=== PATIENT | female | born 1935 | race Caucasian/White ===

== ENCOUNTER 2017-04-05 21:20 | Emergency (ER) | payer MEDICARE ==
[~2017-04-05] VITALS: Ht 165.1 cm; Wt 58.1 kg
[2017-04-05] MEDS ORDERED: DIPH,PERTUSS(ACELL),TET VAC/PF 0.5 ML IM-VACC ONE ×2 (22:30→22:41)
[2017-04-05] MEDS ORDERED: BACITRACIN ZINC OINT 500U/GM, 0.9 GM ONE (22:56)
[2017-04-05] MEDS ORDERED: LIDOCAINE 1%, 20ML ONE (22:57)
[2017-04-05] MEDS ORDERED: LIDOCAINE 1%, 20ML SQ ONE (23:00)
[2017-04-05 23:42] VITALS: BP 145/62
== END 2017-04-05 23:46 | disposition home or self-care (01) ==
LOC: ED 23:37
DX: S01.21XA Laceration without foreign body of nose, initial encounter (principal); S01.01XA Laceration without foreign body of scalp, initial encounter; F10.120 Alcohol abuse with intoxication, uncomplicated; J44.9 Chronic obstructive pulmonary disease, unspecified; E03.9 Hypothyroidism, unspecified; W01.0XXA Fall on same level from slipping, tripping and stumbling without subsequent striking against object, initial encounter; Y93.89 Activity, other specified; Y92.098 Other place in other non-institutional residence as the place of occurrence of the external cause; Y99.8 Other external cause status
CPT/HCPCS: 12011; 70450; 70486; 72125; 90715; 99284; J3490

== ENCOUNTER 2019-06-01 19:32 | Emergency (ER) | payer MEDICARE ==
[~2019-06-01] VITALS: Ht 160 cm; Wt 52.0 kg
[2019-06-01] MEDS ORDERED: ALBUTEROL/IPRATROPIUM 2.5MG/0.5MG, 3 ML ONE (19:36)
--- NOTE | 2019-06-01 19:38 | NUR ---
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
--- NOTE | 2019-06-01 19:45 | NUR ---
PT SOB, FOUND IN THE LOBBY WITH O2 SATS IN THE 70S. HX COPD. 2L NC AT HOME. PT WITH INCREASED WORK OF BREATHING THAT STARTED EARLIER TODAY. BREATHING USING ACCESSORY MUSCLES CURRENTLY. PT PLACED ON 8L OXIMASK WITH O2 SATS AT 98%. RT AT BEDSIDE WITH BREATHING TREATMENT. PT STATES SHE FEELS LIKE TREATMENT IS HELPING. PT ATTACHED TO ALL MONITORS.
--- NOTE | 2019-06-01 19:49 | NUR ---
ER MD MATHIAS AT BEDSIDE
--- NOTE | 2019-06-01 19:54 | NUR ---
PT RECIEVED NEB TREATMENT AND NOW IS NOT USING ACCESSORY MUSCLES TO BREATH. PT SPEAKING IN FULL SENTENCES AND BREATHS ARE NOT LABORED. PT DOWNGRADED TO NC @3L SATING AT 96%
[2019-06-01] MEDS ORDERED: ALBUTEROL/IPRATROPIUM 2.5MG/0.5MG, 3 ML NPPB PRN (20:00)
--- NOTE | 2019-06-01 20:10 | NUR ---
pt placed for recheck by isha finch
[2019-06-01 20:21] LABS: ALBUMIN 3.6 g/dL (3.4-5.0); ANION GAP 7 mmol/L (5-15); CALCIUM 9.2 mg/dL (8.5-10.1); CHLORIDE 107 mmol/L (98-107); CREATININE 1.03 mg/dL (0.55-1.02)
[2019-06-01 20:24] LABS: BASOPHILS # (AUTO) 0.01 x10^3/uL (0-0.1); BASOPHILS % (AUTO) 0 % (0-1); EOSINOPHILS # (AUTO) 0.26 x10^3/uL (0-0.4); EOSINOPHILS % (AUTO) 4 % (1-7); LYMPHOCYTES # (AUTO) 0.62 x10^3/uL (1-3.4); LYMPHOCYTES % (AUTO) 10 % (22-44); MD NO; MEAN CORPUSCULAR HGB CONC 32.8 g/dL (32.4-35.8); MEAN CORPUSCULAR VOLUME 100.6 fL (80-100); MEAN PLATELET VOLUME 9.1 fL (7.4-10.4); MONOCYTES # (AUTO) 0.43 x10^3/uL (0.2-0.8); MONOCYTES % (AUTO) 7 % (2-9); NEUTROPHILS # (AUTO) 4.67 x10^3/uL (1.8-6.8); NEUTROPHILS % (AUTO) 78 % (42-75); PLATELET COUNT 223 x10^3/uL (130-400); RED BLOOD COUNT 4.06 x10^6/uL (3.82-5.3); RED CELL DISTRIBUTION WIDTH 14.4 % (9.6-15.2)
[2019-06-01 21:10] VITALS: BP 126/66
--- NOTE | 2019-06-01 21:25 | NUR ---
pt ambulatory in the hallways with steady gait. pt states she feels "normal" and was not short of breath.
== END 2019-06-01 21:47 | disposition home or self-care (01) ==
LOC: ED 21:30
DX: J96.01 Acute respiratory failure with hypoxia (principal); J44.1 Chronic obstructive pulmonary disease with (acute) exacerbation; E03.9 Hypothyroidism, unspecified; Z87.891 Personal history of nicotine dependence
CPT/HCPCS: 36415; 71045; 80048; 82040; 85025; 93005; 94640; 99291; J7512